=== PATIENT | male | born 1940 | race Caucasian/White ===

== ENCOUNTER → 2017-06-20 | Outpatient (CLI) | payer OTHER ==
[~2017-06-20] MED LIST: CALCIUM 500 + D1 TAB PO; CIPRO PO; DIAZEPAM PO; DIGITEK; FLOMAX0.4 MG PO; GLUCOTROL XL PO; HYTRIN PO; MULTIVITAMINS W1 TAB PO; VICODIN 5/500 T1 TAB PO; VIT B6 PO; ZANTAC PO
--- NOTE | ~2017-06-20 | CT2 ---
[facility] A Service of [facility] RADIOLOGY TEXT RESULTS PATIENT: GABRIELA CRUZ [facility] : 44 UNIT #: [id number] AGE: [address]: Juan Lopez Jr, MD SEX: M ORDER DR: [id number] [facility] [address] [place], [place] [address] [id number] O MR#: [id number] Acc #: [id number] NAME: GABRIELA CRUZ. : 1940 SEX: M STUDY DATE/TIME: 06/20/2017 10:59 UNIT: [facility] ROOM: STUDY DESCRIPTION: CT Abd and Pelv W Cont Attending Physician: Juan Lopez Jr., M.D. Referring Physician: Juan Lopez Jr., M.D. Ordering Physician: Juan Lopez Jr., M.D. Primary Care Physician: Aguila Euceda M.D. MEDICAL IMAGING REPORT This report is preliminary unless electronic signature is present EXAM CT of the abdomen and pelvis with contrast. INDICATIONS Diarrhea for 2 weeks, as well as stomach pain. TECHNIQUE Axial CT images were obtained from the dome of the diaphragm through symphysis pubis following the administration of oral and intravenous contrast material. This CT exam was performed with one or more of the following radiation dose reduction techniques: automatic exposure control, adjustment of mA and/or kV according to patient size, and iterative reconstruction. FINDINGS Images through the lung bases demonstrate some emphysematous changes as well as some bibasilar scarring. There is a noncalcified pulmonary nodule measuring about 3 mm in size. Follow up CT is recommended in one year is recommended to document stability. There is a small hiatal hernia. The proximal small bowel appears unremarkable as are the adrenal glands. Pancreas is atrophic. The spleen is within normal limits. Liver appears unremarkable, as is the gallbladder. No free fluid or adenopathy is seen within the abdomen. There is no evidence of mechanical bowel obstruction. The patient does actually have a cyst arising from the inferior pole of the left kidney. The right kidney appears unremarkable. There is a small fat-containing umbilical hernia. Urinary bladder is normal as is the prostate gland. Small bilateral fat containing inguinal hernias are noted right greater than left. No definite abnormality of the colon is seen. I do not see any definite wall thickening or evidence of obstruction or pericolonic soft tissue stranding. No free fluid or STS. [facility] A Service of [facility] RADIOLOGY TEXT RESULTS PATIENT: GABRIELA CRUZ LOCATION: [facility] : 44 UNIT #: [id number] AGE: [address]: Juan Lopez Jr, MD SEX: M ORDER DR: adenopathy is seen within the abdomen. Review of bony windows does not demonstrate any aggressive osseous abnormalities. IMPRESSION 1. No acute intraabdominal or intrapelvic process is seen to account for the patient's symptomatology. 2. Other incidental findings including left renal cyst and pancreatic atrophy. 3. 3 mm noncalcified pulmonary nodule within the right lower lobe. Follow up CT in 12 months is suggested to document resolution or stability. Dictated by... Edel Hyde M.D. THIS IS AN ELECTRONICALLY VERIFIED REPORT Edel Hyde M.D. at 06/22/2017 12:55 PM NICOLE/len TD: 06/22/2017 02:33 JOB #: [id number] MEDICAL IMAGING REPORT Page 1 of 1 COPY
[2017-06-20 09:36] LABS: HEMATOCRIT 44.1 % (38.0-50.0); MEAN CELL VOLUME 93.7 FL (83-96); MEAN CORPUSCULAR HEMOGLOBIN 29.7 PG (28-34); MEAN CORPUSCULAR HGB CONC 31.7 g/dL (30-36); MEAN PLATELET VOLUME 7.2 FL (6.5-11.5); RED BLOOD COUNT 4.71 X10e (3.90-5.60); RED CELL DISTRIBUTION WIDTH 17.1 % (11.0-15.5); WHITE BLOOD COUNT 6.3 X10e3 (4.0-10.5)
[2017-06-20 10:06] LABS: ALBUMIN SERUM 3.3 g/dL (3.5-5.0); BUN/CREATININE RATIO 17.5; CALCIUM SERUM 8.3 mg/dL (8.4-10.2); CREATININE SERUM 1.2 mg/dL (0.6-1.4); GLOM FILT RATE Estimated 59.2 mL/min (>60); POTASSIUM 4.1 mmol/L (3.5-5.1); PROTEIN TOTAL SERUM 5.9 g/dL (6.0-8.3)
== END | disposition home or self-care (01) ==
LOC: CCAT 08:41
PROVIDERS: Internal Medicine
DX: R10.9 Unspecified abdominal pain (principal); R19.7 Diarrhea, unspecified; R91.1 Solitary pulmonary nodule; N28.1 Cyst of kidney, acquired
CPT/HCPCS: 36415; 74177; 80053; 85027; 85652; Q9967